=== PATIENT | female | born 1945 | race Caucasian/White ===

== ENCOUNTER → 2016-12-08 | Outpatient (CLI) | payer MEDICARE ==
[2016-04-27 12:30] VITALS: BP 182/86
[~2016-12-08] MED LIST: ASPI81TA44 PO; CALC-61 PO; CHOL2000 PO; FISH1CAP PO; GLIM4TAB2 PO; LISI40TA PO; METO50TA2 PO; SIMV40TA3 PO; TRAM50TA PO
--- NOTE | 2016-12-08 12:59 | KCIC ---
PROCEDURE Two-view right hand HISTORY Pain and swelling of the right 2nd finger for 6 months. COMPARISON None FINDINGS Generalized bone demineralization. No evidence of acute fracture or aggressive bone destruction. No evidence of dislocation Mild generalized degenerative osteoarthritis. Small chronic ossicle adjacent to the distal aspect of the proximal 1st phalanx. IMPRESSION No acute fracture or dislocation. Electronically signed by: Barry Galindo MD (Dec 08, 2016 12:57:28)
== END | disposition home or self-care (01) ==
LOC: KCIC 11:58
PROVIDERS: ATTEND Nurse Practitioner Family
DX: M79.641 Pain in right hand (principal); M79.89 Other specified soft tissue disorders
CPT/HCPCS: 73120

== ENCOUNTER → 2017-04-27 | Outpatient (CLI) | payer MEDICARE ==
[2016-04-27 12:30] VITALS: BP 182/86
[~2017-04-27] MED LIST changes: +CALC-474 PO; -CALC-61 PO
--- NOTE | 2017-04-27 16:28 | KCIC ---
EXAM: Chest, 2 views. HISTORY: Cough, fever and chills. COMPARISON: None. FINDINGS: Frontal and lateral views of the chest are obtained. There is suspected right basilar atelectasis or scarring. There is no infiltrate, effusion or pneumothorax. The heart is normal in size. There are bilateral shoulder arthroplasties. IMPRESSION: 1. No acute pulmonary finding. 2. Suspected right basilar atelectasis or scarring. Electronically signed by: Karin Frank MD (04/27/2017 4:25 PM) [facility]
== END | disposition home or self-care (01) ==
LOC: KCIC 15:50
PROVIDERS: ATTEND Nurse Practitioner Family
DX: R05 Cough (principal); R50.9 Fever, unspecified
CPT/HCPCS: 71020

== ENCOUNTER → 2017-11-14 | Outpatient (CLI) | payer MEDICARE | END | disposition home or self-care (01) | LOC: KCIC 15:00 | DX: J18.9 Pneumonia, unspecified organism (principal) | CPT/HCPCS: 71046 ==

== ENCOUNTER → 2017-11-15 | Outpatient (CLI) | payer MEDICARE | END | disposition home or self-care (01) | LOC: KCIC CT 15:04 | DX: I25.10 Atherosclerotic heart disease of native coronary artery without angina pectoris (principal); I35.0 Nonrheumatic aortic (valve) stenosis; K43.9 Ventral hernia without obstruction or gangrene; R91.8 Other nonspecific abnormal finding of lung field | CPT/HCPCS: 71250 ==

== ENCOUNTER → 2017-12-11 | Day surgery (SDC) | payer MEDICARE ==
[~2017-12-11] MED LIST changes: +0.9 % SODIUM CHLORIDE 10 ML DISP.SYRIN. IV; -ASPI81TA44 PO; -CALC-474 PO; -CHOL2000 PO; -FISH1CAP PO; -GLIM4TAB2 PO; +IV RINGERS,LACTATED 1000ML 1,000 ML IV; +LIDOCAINE 1% PF 2 ML VIAL. ID; -LISI40TA PO; -METO50TA2 PO; +MORPHINE SULFATE 4 MG/ML DISP.SYRIN. IV; +ONDANSETRON PF 4 MG/2 ML VIAL. IV; +PROCHLORPERAZINE 10 MG/2 ML VIAL. IV; +PROPOFOL 0 ML IV; -SIMV40TA3 PO; -TRAM50TA PO; +fentaNYL PF VIAL 100 MCG/2 ML VIAL IV
== END ==
LOC: SURG 08:20
DX: I25.10 Atherosclerotic heart disease of native coronary artery without angina pectoris (principal); Z53.8 Procedure and treatment not carried out for other reasons
CPT/HCPCS: 93005; J2704

== ENCOUNTER → 2018-01-30 | Outpatient (CLI) | payer MEDICARE ==
[2018-01-30] MEDS: IOHEXOL 240 MG/ML 50ML VIAL. PO (08:50)
[2018-01-30] MEDS: IOHEXOL 300 MG/ML 100ML VIAL. IV (09:20)
[2018-01-30 09:33] LABS: ISTAT CREATININE 1.3 mg/dL (0.6-1.1)
== END | disposition home or self-care (01) ==
LOC: KCIC CT 07:48
DX: C85.90 Non-Hodgkin lymphoma, unspecified, unspecified site (principal); K43.9 Ventral hernia without obstruction or gangrene; I70.0 Atherosclerosis of aorta; I25.10 Atherosclerotic heart disease of native coronary artery without angina pectoris
CPT/HCPCS: 71260; 74177; 82565; Q9966; Q9967

== ENCOUNTER → 2018-03-23 | Outpatient (CLI) | payer MEDICARE ==
[2018-03-23 10:23] LABS: ALBUMIN 3.7 g/dL (3.4-5.0); ALBUMIN/GLOBULIN RATIO 1.2 (1.0-1.7); ALK PHOS 114 U/L (46-116); ALT (SGPT) 22 U/L (14-59); ANION GAP 8 (6-14); AST (SGOT) 13 U/L (15-37); BLOOD UREA NITROGEN 26 mg/dL (7-20); BUN/CREATININE RATIO 19 (6-20); CARBON DIOXIDE 27 mmol/L (21-32); CHLORIDE 102 mmol/L (98-107); CREATININE 1.4 mg/dL (0.6-1.0); GFR 36.9; GLUCOSE 258 mg/dL (70-99); SODIUM 137 mmol/L (136-145); TOTAL BILIRUBIN 0.4 mg/dL (0.2-1.0); TOTAL PROTEIN 6.7 g/dL (6.4-8.2)
[2018-03-23 10:59] LABS: VITAMIN-B12 983 pg/mL (247-911)
== END | disposition home or self-care (01) ==
LOC: LAB 09:29
DX: R00.1 Bradycardia, unspecified (principal); I12.9 Hypertensive chronic kidney disease with stage 1 through stage 4 chronic kidney disease, or unspecified chronic kidney disease; N18.4 Chronic kidney disease, stage 4 (severe); E11.9 Type 2 diabetes mellitus without complications
CPT/HCPCS: 36415; 80053; 82607

== ENCOUNTER → 2018-07-30 | Outpatient (CLI) | payer MEDICARE ==
[2016-04-27 12:30] VITALS: BP 182/86
[~2018-07-30] MED LIST changes: -0.9 % SODIUM CHLORIDE 10 ML DISP.SYRIN. IV; +ALLO100T PO; +ASPI81TA59 PO; +CALC-474 PO; +CALC1CAP7 PO; +CHOL2000 PO; +DILT120C2 PO; +DOCU100C28 PO; +FISH1CAP PO; +FLUT1DIS3 IH; +GABA-585 PO; +GLIM4TAB2 PO; +IOHEXOL 240 MG/ML 50ML VIAL. PO ONE; +IOHEXOL 300 MG/ML 100ML VIAL. IV ONE; -IV RINGERS,LACTATED 1000ML 1,000 ML IV; -LIDOCAINE 1% PF 2 ML VIAL. ID; +LISI-130 PO; +LISI-334 PO; +METO50TA6 PO; -MORPHINE SULFATE 4 MG/ML DISP.SYRIN. IV; -ONDANSETRON PF 4 MG/2 ML VIAL. IV; +PROAIR RESPICL90 MCG IH; -PROCHLORPERAZINE 10 MG/2 ML VIAL. IV; -PROPOFOL 0 ML IV; +SIMV20TA3 PO; +SIMV40TA3 PO; +TRAM50TA PO; +VITAMIN B12 SL; -fentaNYL PF VIAL 100 MCG/2 ML VIAL IV
--- NOTE | 2018-07-30 13:09 | KCIC ---
Examination: CT CHEST ABD PELVIS W/CONTRAST History: Follicular lymphoma Comparison/Correlation: 01/30/2018 CT chest abdomen pelvis with contrast Findings: Axial images of the chest, abdomen, and pelvis were obtained following 70 cc Omnipaque 300 IV. Oral contrast was administered. Sagittal and coronal reformatted images were provided. Bilateral shoulder joint prostheses are present and is here evaluation at the level of the thoracic inlet due to streak artifact. Visualized soft tissues of the base of the neck are unremarkable although evaluation is limited. No enlarged lymph nodes involving the thorax identified. No suspicious pulmonary nodule. Coronary arterial calcification diffusely noted especially involving the left main, left anterior descending, and right circumflex arteries. Calcification about the mitral annulus is present. The tracheobronchial tree is unremarkable. No infiltrates or effusions. No pneumothorax. No pulmonary nodules or masses. Cholecystectomy noted. Liver, spleen, pancreas, and adrenal glands are normal. Right extrarenal pelvis is present. Kidneys are unremarkable overall. Moderate quantity of stool in the colon is present. No bowel obstruction. No extraluminal gas. Mesenteric lymph nodes are present and multiple other nonenlarged. No enlarged paracaval or para-aortic lymph nodes. Duodenal diverticulum incidentally seen at the distal descending region. Urinary bladder is normal. Uterus is atrophic. Minimal abdominal wall scarring which presumably represent previous intervention noted. Small hernia defect contains omental fat similar to prior exam. Moderate L3-4 and L4-5 disc space narrowing identified. Impression: No enlarged lymph nodes identified to involve the chest, abdomen, or pelvis. No significant change. Electronically signed by: Ethan Mattson MD (07/30/2018 1:06 PM) [facility]
== END | disposition home or self-care (01) ==
LOC: KCIC CT 08:14
PROVIDERS: ATTEND Internal Medicine Hematology & Oncology
DX: K57.10 Diverticulosis of small intestine without perforation or abscess without bleeding (principal); I25.10 Atherosclerotic heart disease of native coronary artery without angina pectoris; M48.061 Spinal stenosis, lumbar region without neurogenic claudication; N85.8 Other specified noninflammatory disorders of uterus; I12.9 Hypertensive chronic kidney disease with stage 1 through stage 4 chronic kidney disease, or unspecified chronic kidney disease; E11.22 Type 2 diabetes mellitus with diabetic chronic kidney disease; N18.4 Chronic kidney disease, stage 4 (severe); Z90.49 Acquired absence of other specified parts of digestive tract; Z79.01 Long term (current) use of anticoagulants; Z85.72 Personal history of non-Hodgkin lymphomas
CPT/HCPCS: 71260; 74177; Q9966; Q9967

== ENCOUNTER 2019-06-20 08:07 | Inpatient (IN) | payer MEDICARE ==
[2019-06-20] VITALS (18 sets, daily range): BP systolic 95–137; BP diastolic 52–73
[~2019-06-20] VITALS: Ht 167.6 cm; Wt 80.4 kg
[~2019-06-20 08:07] MED LIST changes: -GLIM4TAB2 PO; +GLIM4TAB4 PO; -IOHEXOL 240 MG/ML 50ML VIAL. PO ONE; -IOHEXOL 300 MG/ML 100ML VIAL. IV ONE; +SIMV20TA18 PO; -SIMV20TA3 PO; +SIMV40TA18 PO; -SIMV40TA3 PO
--- NOTE | 2019-06-20 08:41 | EKG ---
[facility] [address] [place] [address] Test Date: 2019-06-20 Test Time: 08:35:43 Pat Name: JOHNNA HAYDEN Department: Room: Gender: F Account Support Rep: : 1945 Requested By: MAXWELL ROBERSON Order Number: [id number] Reading MD: Joel Tellez Measurements Intervals Speer Rate: 56 P: AR: QRS: 31 QRSD: 76 T: 64 QT: 426 QTc: 414 Interpretive Statements SINUS ARRHYTHMIA PACS Electronically Signed On 06-28-2019 16:33:40 CDT by Joel Tellez
[2019-06-20] MEDS ORDERED: AMLO10TA8 PO (09:18)
[2019-06-20] MEDS ORDERED: B12 SL (09:18)
[2019-06-20] MEDS ORDERED: METO-269 PO (09:18)
[2019-06-20] MEDS ORDERED: [UNRECOGNIZED DRUG - OTHER] (09:18)
[2019-06-20] MEDS ORDERED: DOXY25TA16 PO (09:18)
[2019-06-20] MEDS ORDERED: DIPHENHYDRAMINE PO (09:18)
[2019-06-20] MEDS ORDERED: VALE450C2 PO (09:18)
[2019-06-20] MEDS ORDERED: HYDR-2869 PO (09:18)
[2019-06-20] MEDS ORDERED: HYDR-2761 PO (09:18)
[2019-06-20] MEDS ORDERED: CEYLON CINNAMON PO (09:18)
[2019-06-20 09:20] LABS: HEMATOCRIT 38.9 % (36.0-47.0); HEMOGLOBIN 13.2 g/dL (12.0-15.5); RED BLOOD COUNT 4.24 x10^6/uL (3.50-5.40); RED CELL DISTRIBUTION WIDTH 13.6 % (11.5-14.5); WHITE BLOOD COUNT 3.9 x10^3/uL (4.0-11.0)
[2019-06-20 09:30] LABS: PROTHROMBIN TIME PATIENT 14.1 SEC (11.7-14.0)
[2019-06-20 09:41] LABS: CALCIUM 9.6 mg/dL (8.5-10.1); CREATININE 1.3 mg/dL (0.6-1.0)
[2019-06-20] MEDS ORDERED: BACITRACIN 50,000 UNIT in IV NORMAL SALINE 250ML 250 ML IRR ONE (10:00)
[2019-06-20] MEDS ORDERED: MIDAZOLAM HCL/PF 2 MG/2 ML VIAL. ONE ×2 (10:06→10:36)
[2019-06-20] MEDS ORDERED: fentaNYL PF VIAL 100 MCG/2 ML VIAL ONE ×2 (10:06→10:56)
[2019-06-20] MEDS ORDERED: IOHEXOL 300 MG/ML 100ML VIAL. ONE (10:18)
[2019-06-20] MEDS ORDERED: LIDOCAINE 2%/EPI 1:100,000 20 ML VIAL. ONE (10:23)
--- NOTE | 2019-06-20 10:29 | PDOC ---
Provider Note Provider Note Cardiology history and physical Reason for observation admission: Pacemaker placement History of present illness pleasant 73-year-old woman with past medical history as noted below has had recurrent episodes of lightheadedness and syncope and most recently was seen in the ER a week or 2 ago with similar symptoms. She has a long-standing history of bradycardia and intermittent tachycardia-bradycardia syndrome in the setting of atrial fibrillation. After discussion the risks and benefits in the office she has been brought in for elective pacemaker placement Past medical history #1 paroxysmal atrial fibrillation 2. Chronic tachycardia-bradycardia syndrome 3. Chronic kidney disease 4. Prior history of non-Hodgkin's lymphoma in 2007 Social history: She is . Denies any alcohol, tobacco or illicit drug use. Allergies to verapamil, Levaquin and tape. Family history is noncontributory Review systems is negative unless otherwise mentioned above in history of present illness. Current cardiac medications: Aspirin 81 mg daily lisinopril point milligrams twice a day and metoprolol XL 50 mg daily Hydralazine 50 mg twice a day, simvastatin 20 mg daily, amlodipine 10 mg daily Physical examination: The patient appeared well nourished and normally developed. Head exam is unremarkable. No scleral icterus or corneal arcus noted. Neck is without jugular venous distension, thyromegaly, or carotid bruits. Carotid upstrokes are brisk bilaterally. Lungs are clear to auscultation and percussion. Cardiac exam reveals the PMI to be normally sized and situated. Rhythm is regular. First and second heart sounds normal. No murmurs, rubs or gallops. Abdominal exam reveals normal bowel sounds, no masses, no organomegaly and no aortic enlargement. Extremities are nonedematous and both femoral and pedal pulses are normal. Msk: No traumua Neuro: No focal deficits Laboratory studies are grossly unremarkable. Impression: 1. Tachycardia bradycardia syndrome Plan: 1. Dual-chamber pacemaker placement. Risks and benefits discussed with the patient. MAXWELL ROBERSON MD Jun 20, 2019 10:29
--- NOTE | 2019-06-20 10:30 | PDOC ---
MODERATE SEDATION ASSESSMENT RISKS/ALTERNATIVES Risks/Alternatives Risks and alternatives of this type of sedation and procedure discussed with: RISK/ALTERNATIVES: Patient H & P ON CHART H & P H & P on chart and reviewed for co-morbid conditions and appropriate labs. H&P ON CHART: Yes STATUS PREG STATUS ASSESSED: N/A MEDS/ALLERGIES REVIEWED Meds/Allergies Reviewed Medications and Allergies including time and route of recently administered narcotics and sedatives. MEDS/ALLERGIES REVIEWED: Yes ASA RATING ASA RATING: II AIRWAY ASSESSMENT Airway Assessment Airway patency, oral function limitations, presence of caps, crowns, dentures, partials, and ability to extend neck assessed. AIRWAY ASSESSMENT: Yes MALLAMPATI SCORE MALLAMPATI SCORE: II PRE-SEDATION ASSESSMENT PRE-SEDATION ASSESSMENT: Yes MAXWELL ROBERSON MD Jun 20, 2019 10:30
[2019-06-20] MEDS ORDERED: LIDOCAINE 2%/EPI 1:100,000 20 ML VIAL. IJ ONE (11:00)
[2019-06-20] MEDS ORDERED: MIDAZOLAM HCL/PF 2 MG/2 ML VIAL. IV ONE (11:00)
[2019-06-20] MEDS ORDERED: fentaNYL PF VIAL 100 MCG/2 ML VIAL IV ONE (11:00)
[2019-06-20] MEDS ORDERED: IOHEXOL 300 MG/ML 50 ML VIAL. IART ONE (11:45)
[2019-06-20] MEDS ORDERED: CONTRAST GIVEN. MC PRN (12:00)
--- NOTE | 2019-06-20 12:38 | CARD ---
MR#: [id number] Date of Study: 06/20/2019 Ordering Physician: MAXWELL ROBERSON, Referring Physician: MAXWELL ROBERSON, Tech: APPROVED REPORT HISTORY The Patient is a 73 year-old female with a history of tachy-indio syndrome Fluoro time: 9.2min Dose: 71Yhqw0 Contrast:40cc Mioderate sedation:90 min PROCEDURES Insertion Dual Chamber Pacemaker INDICATIONS Tachybrady syndrome with syncope. IMPLANTED DEVICES 30 mL of 2% lidocaine was infiltrated into the skin and subcutaneous tissues for local anesthesia. A n incision was made over the left infraclavicular fossa and using blunt dissection and cautery a pock et was created. Venous access was obtained in the left subclavian vein and 6F sheaths were inserted. Subsequently, a Biotronik bipolar active fixation right ventricular lead model Solia S 60 cm with SN [id number] was advanced under fluoroscopic guidance and the tip was positioned in the right ventricular apex. 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 The short sheath was removed and this was replaced with th e tip placed in the mid SVC. It is suspected that the right atrial lead may have either gone into a c ollateral or may have been sub intimal in the vein. Following this, a Biotronik bipolar active fixat ion right atrial lead model Solia S 53, SN [id number] was placed in the right atrial appendage under fl uoroscopy guidance. The leads were secured into place and were attached to a Biotronik dual-chamber permanent pacemaker generator model Eluna 8 DR-T Pro MRI with serial number [id number]. This was place d in the pocket that was subsequently closed in 3 layers. Hemostasis was secured. Two limited bedside echocardiograms were performed to evalaute for any evidence of pericardial effusi on and this was unremarkable. The patient had maintained normal saturation and BP/HR through out the procedure. Final venogram revealed no significant contrast staining in the innominate and SVC. At the end of procedure, the right ventricular lead showed sensing amplitude of 8.8 mV, impedance of 819 ohms and a threshold of 0.6 volts. The right atrial lead showed a sensing amplitude of 1.5 mill ivolts, impedance of 429 ohms and a threshold of 1.0 volts. Patient tolerated the procedure well. The patient was transpored to the ICU for close monitoring. Complications discussed with the patient's f amily. Final parameters: DDD/CLS CONCLUSION 1. Succesful insertion of a Biotronik dual chamber pacemaker for tachy-indio syndrome. 2. 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 3. Monitor in ICU for any bleeding complications. Signed by : Maxwell Roberson, Electronically Approved : 06/20/2019 12:37:40
[2019-06-20] MEDS ORDERED: fentaNYL PF VIAL 100 MCG/2 ML VIAL IVP ONE ×2 (15:00→16:15)
[2019-06-20] MEDS ORDERED: DEXTROSE 50% 25 GM / 50ML DISP.SYRIN. IV PRN (15:00)
[2019-06-20] MEDS ORDERED: ALBUTEROL SULFATE 2.5 MG/3 ML NEBU. NEB PRN ×2 (15:00→15:15)
[2019-06-20 15:09] LABS: HEMATOCRIT 35.7 % (36.0-47.0); HEMOGLOBIN 12.2 g/dL (12.0-15.5); RED BLOOD COUNT 3.86 x10^6/uL (3.50-5.40); RED CELL DISTRIBUTION WIDTH 13.6 % (11.5-14.5); WHITE BLOOD COUNT 5.2 x10^3/uL (4.0-11.0)
[2019-06-20] MEDS ORDERED: IOHEXOL 300 MG/ML 100ML VIAL. IV ONE (15:30)
[2019-06-20] MEDS: METOPROLOL SUCC 24HR ER 50 MG TAB.ER.24H. PO SCH (15:30)
--- NOTE | 2019-06-20 16:04 | RAD ---
STUDY: CT chest with and without contrast INDICATION: Status post pacemaker placement with concern for venous perforation. COMPARISON: CT chest 07/30/2018 TECHNIQUE: Helical CT imaging of the chest performed both prior to and after the intravenous administration of 99 cc Omnipaque 300. The postcontrast images were timed for preferential evaluation of the major venous structures supplying the heart. Coronal and sagittal reformats were obtained. One or more of the following individualized dose reduction techniques were utilized for this examination: 1. Automated exposure control 2. Adjustment of the mA and/or kV according to patient size 3. Use of iterative reconstruction technique. FINDINGS: Sequela of recently placed left chest wall dual-lead pacer device. Hematoma surrounding the device hub in the left infraclavicular region with surrounding subcutaneous air. Note is made that close evaluation of the pacer leads as they course towards the left brachiocephalic vein, as well as the surrounding soft tissues, is made difficult by extensive streak artifact from bilateral total shoulder arthroplasty constructs. The pacer leads course along the left brachiocephalic vein to the superior vena cava. One lead terminates at the upper aspect of the right atrial appendage. The second lead terminates at the apex of the right ventricle. Fat stranding at the anterior mediastinum along the left brachiocephalic vein as it approaches the superior vena cava, image 21 series 7, as well as fat stranding extending along the superior vena cava and upper aspect of the right atrial appendage. Slightly more dense stranding anterior to the superior vena cava such as on images 27 and 28, series 2, which does not change after the administration of contrast. No large pericardial effusion. No pneumomediastinum. Moderate volume right pleural effusion which contains wispy increased density that is present on the precontrast images corresponding to contrast administered during pacer placement. No increase in volume of contrast within this effusion on the postcontrast images to suggest active hemorrhage. Expected opacification of the azygos vein, image 24 series 7. Extensive coronary artery calcifications. The study is not timed for close evaluation of the pulmonary arteries though note is made that no large central pulmonary embolism is seen. Thoracic aortic calcifications without aneurysmal dilatation. Calcified and noncalcified atheromatous plaque also seen to involve the visualized abdominal aorta and branch vessel origins. Passive atelectasis overlying the right pleural effusion. Left-sided dependent volume loss also noted. No pneumothorax. Contrast in the renal collecting systems relating to procedural contrast administration. Multifocal osseous degenerative changes on a background of osteopenia. No acute or destructive osseous abnormality identified. IMPRESSION: 1. Soft tissue findings in the left infraclavicular region in keeping with recently placed dual-lead pacer device with surrounding hemorrhage and subcutaneous air. This is likely within the broad range of normal given proximity to the procedure. Note is made that the soft tissues, osseous structures and hardware components at the level of the clavicles are not well evaluated due to extensive streak artifact from surgical hardware. 2. Stranding along the left brachiocephalic vein as it approaches the superior vena cava, as well as along the superior vena cava and upper aspect of the right atrial appendage, is in keeping with known mild venous injury during pacer placement. Correspondingly, there is contrast within a moderate-sized right pleural effusion that is present on the precontrast sequences compatible with extravasation during the procedure. There is no increase in the volume of contrast within this effusion on the postcontrast sequences to suggest ongoing bleeding. Note is made that the most dense perivenous stranding on the precontrast sequences is seen anterior to the upper aspect of the superior vena cava, image 27/28 series 2, which could potentially have represented the site of injury. No large pericardial effusion or hematoma to suggest active hemorrhage within the mediastinum. No pneumothorax. 3. Incidental chronic findings, as above, to include extensive coronary artery calcifications. The results of the study were discussed with Dr. Snow on 06/20/2019 at 1545 hours. Electronically signed by: STEVIE HENDERSON MD (06/20/2019 4:01 PM) [facility]
[2019-06-20] MEDS: HYDROcodone/APAP 5/325MG 1 TAB TABLET PO PRN (16:42)
[2019-06-20] MEDS: INSULIN LISPRO 300 UNITS/3 ML VIAL. SQ SCH (17:35)
--- NOTE | 2019-06-20 18:07 | PDOC ---
Provider Note Provider Note Brief cardiology history and physical Reason for admission: Post procedure after pacemaker placement History of present illness: 73-year-old woman with past medical history of tachybradycardia syndrome and who has previously been treated conservatively has had multiple episodes of lightheadedness and dizziness with a heart rate of 27 when she went to a another provider. Therefore after discussion of the risks and benefits an outpatient basis the patient was brought in for elective pacemaker placement. 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 She had some contrast extravasation into the thorax. Ultimately, a dual-chamber Biotronik pacemaker was placed without any difficulty. The patient remained hemodynamically stable without any respiratory issues throughout the operative procedure. Due to concern for possible hemodynamic compromise a decision was made to place the patient in the ICU for overnight observation After addition to the ICU she was noted to have some chest discomfort and echocardiogram while in the operative suite did not reveal any pericardial effusion and to rule out any significant venous hemorrhage a CT angiogram was obtained. The CT angiogram was reassuring and did not reveal any significant bleeding stigmata. The leads were appropriately positioned. The patient did have a small to moderate size left infraclavicular incisional hematoma which was treated with compression therapy. At the time of this dictation the patient's hemodynamic status is excellent. She denies any pain out of the ordinary. Her cardiovascular examination is unremarkable. No arrhythmias on telemetry. Laboratory studies are unremarkable from this morning. Plan: 1. Overnight observation with routine post procedural antibiotics and if no acute events overnight and her device is within normal limits with respect to her evaluation and lead placement we will plan for discharge tomorrow around noon. The expected complications and current clinical stable status was discussed extensively with the patient and her family (). All their questions were answered to their satisfaction. MAXWELL ROBERSON MD Jun 20, 2019 18:06
[2019-06-20] MEDS ORDERED: IV NORMAL SALINE 1000ML BAG 1,000 ML IV SCH (18:15)
--- NOTE | 2019-06-20 19:00 | NUR ---
Reassessments for Fentanyl not completed by ED RN. Documented as "not done" by this RN.
[2019-06-20] MEDS ORDERED: IV NORMAL SALINE 1000ML BAG 1,000 ML IV ONE (19:15)
--- NOTE | 2019-06-20 19:24 | NUR ---
Dr. Snow rounded on patient this evening around 1900. Stated to place a X1 order for NS at 100 ml/hr and to monitor pacemaker site throughout the night for additional swelling/changes.
[2019-06-20] MEDS: GLIMEPIRIDE 2 MG TABLET. PO SCH (20:47)
[2019-06-20] MEDS: fentaNYL PF VIAL 100 MCG/2 ML VIAL IVP PRN (22:07)
[2019-06-21] VITALS (24 sets, daily range): BP systolic 115–159; BP diastolic 53–74
[2019-06-21] MEDS: HYDROcodone/APAP 5/325MG 1 TAB TABLET PO PRN ×3 (03:12→17:44)
[2019-06-21] MEDS: fentaNYL PF VIAL 100 MCG/2 ML VIAL IVP PRN ×2 (04:14→07:43)
[2019-06-21 05:56] LABS: BASO % 0 % (0-3); EOS % 0 % (0-3); HEMATOCRIT 30.7 % (36.0-47.0); HEMOGLOBIN 10.5 g/dL (12.0-15.5); LYMPH # 0.9 x10^3/uL (1.0-4.8); LYMPH % 19 % (24-48); MEAN CORPUSCULAR HEMOGLOBIN 32 pg (25-35); MEAN CORPUSCULAR HGB CONC 34 g/dL (31-37); MEAN CORPUSCULAR VOLUME 92 fL (79-100); MONO # 0.5 x10^3/uL (0.0-1.1); MONO % 11 % (0-9); NEUT # 3.4 x10^3/uL (1.8-7.7); NEUT % 69 % (31-73); PLATELET COUNT 105 x10^3/uL (140-400); RED BLOOD COUNT 3.35 x10^6/uL (3.50-5.40); RED CELL DISTRIBUTION WIDTH 13.6 % (11.5-14.5); WHITE BLOOD COUNT 4.9 x10^3/uL (4.0-11.0)
[2019-06-21 06:08] LABS: CALCIUM 8.4 mg/dL (8.5-10.1); CREATININE 1.1 mg/dL (0.6-1.0); GFR 48.6
[2019-06-21] MEDS: METOPROLOL SUCC 24HR ER 50 MG TAB.ER.24H. PO SCH (09:09)
[2019-06-21] MEDS: GLIMEPIRIDE 2 MG TABLET. PO SCH ×2 (09:09→21:06)
[2019-06-21] MEDS: INSULIN LISPRO 300 UNITS/3 ML VIAL. SQ SCH ×3 (09:12→17:31)
--- NOTE | 2019-06-21 10:19 | CARD ---
MR#: [id number] Date of Study: 06/21/2019 Ordering Physician: LARRY RAMIREZ, Referring Physician: LARRY RAMIREZ, Tech: Whitney Guillermo APPROVED REPORT EXAM: Two-dimensional and M-mode echocardiogram with Doppler and color Doppler. Other Information Quality : AverageHR: 65bpm Rhythm : Pacemaker INDICATION Pericardial Effusion Atrial Fibrillation Syncope Surgery/Intervention Pacemaker: Date: 2018 LEFT VENTRICLE Limited study. The left ventricle is normal size. There is normal left ventricular wall thickness. Th e left ventricular systolic function is normal and the ejection fraction is within normal range. The Ejection Fraction is 55-60%. There is normal LV segmental wall motion. Diastology not performed. RIGHT VENTRICLE The right ventricle is normal size. There is normal right ventricular wall thickness. The right ventr icular systolic function is normal. Device lead in the right ventricle. ATRIA The left atrium size is normal. The right atrium size is normal. The interatrial septum is intact wit h no evidence for an atrial septal defect or patent foramen ovale as noted on 2-D or Doppler imaging. AORTIC VALVE The aortic valve is thickened but opens well. Doppler and color-flow analysis was not performed. Ther e is no significant aortic valvular stenosis. MITRAL VALVE Mitral annular calcification is mild to moderate. There is no evidence of mitral valve prolapse. Ther e is no mitral valve stenosis. Doppler and color-flow analysis was not performed. TRICUSPID VALVE The tricuspid valve is normal in structure and function. Doppler and color-flow analysis was not perf ormed. There is no tricuspid valve stenosis. PULMONIC VALVE The pulmonic valve is not well visualized. Doppler and color-flow analysis was not performed. GREAT VESSELS The aortic root is normal in size. The IVC is normal in size and collapses >50% with inspiration. PERICARDIAL EFFUSION There is a trace pericardial effusion with no hemodynamic significance. Critical Notification Critical Value: No <Conclusion> Limited study. The left ventricle is normal size. The left ventricular systolic function is normal and the ejection fraction is within normal range. The Ejection Fraction is 55-60%. There is normal LV segmental wall motion. There is a trace pericardial effusion with no hemodynamic significance. Signed by : Joel Tellez MD Electronically Approved : 06/21/2019 10:19:06
--- NOTE | 2019-06-21 12:13 | PDOC ---
Provider Note Provider Note Overnight, no acute events. Had some pain in the right chest area that resolved with pain control. VSS CXR this morning with lead movement and lack of appropriate capture. Will plan for RV/RA lead revision today. Etiology of lead movement unclear. She had excellent slack on the lead yesterday with great parameters. D/w Family. MAXWELL ROBERSON MD Jun 21, 2019 12:13
[2019-06-21] MEDS ORDERED: LIDOCAINE 2%/EPI 1:100,000 20 ML VIAL. ONE ×2 (12:22)
[2019-06-21] MEDS ORDERED: MIDAZOLAM HCL/PF 5 MG/5 ML VIAL. ONE (12:23)
[2019-06-21] MEDS ORDERED: fentaNYL PF VIAL 100 MCG/2 ML VIAL ONE ×2 (12:23→13:13)
[2019-06-21] MEDS ORDERED: BACITRACIN 50,000 UNIT in IV NORMAL SALINE 250ML 250 ML IRR ONE (12:30)
[2019-06-21] MEDS ORDERED: LIDOCAINE 2%/EPI 1:100,000 20 ML VIAL. IJ ONE (12:30)
[2019-06-21] MEDS ORDERED: MIDAZOLAM HCL/PF 5 MG/5 ML VIAL. IV ONE (12:30)
[2019-06-21] MEDS ORDERED: fentaNYL PF VIAL 100 MCG/2 ML VIAL IV ONE (12:30)
--- NOTE | 2019-06-21 13:05 | RAD ---
Chest AP portable at 0645: Reason for examination: Post pacemaker placement. Comparison is made to previous study dated 11/14/2017. Pacemaker is present over the left hemithorax with leads to the right atrium and right ventricle. Heart and mediastinum are unchanged. Lung soliman show some blunting at the right costophrenic angle suggesting a small pleural effusion. No congestion or focal infiltrates are seen. No pneumothorax is seen. No acute bony abnormalities are present. Postop changes are seen at both shoulders. IMPRESSION: Pacemaker in place over the left hemithorax. No pneumothorax evident. Blunted costophrenic angle on the right suggesting a small right pleural effusion. Electronically signed by: Brittney Arriaga MD (06/21/2019 1:02 PM) [id number]
--- NOTE | 2019-06-21 14:34 | CARD ---
MR#: [id number] Date of Study: 06/21/2019 Ordering Physician: MAXWELL ROBERSON, Referring Physician: MAXWELL ROBERSON, Tech: APPROVED REPORT HISTORY The Patient is a 73 year-old female with a history of SSS PROCEDURES RV LEAD REPOSITIONING FLUORO TIME: 4.9 MINUTES Dose: 6.7 Gycm2 Sedation Time: 103 minutes Pacemaker lead revision and pocket hematoma INDICATIONS 73 y.o woman with dual chamber pacemaker yesterday that had an iatrogenic innominate vein injury and was monitored in the ICU. Her lead evaluation this morning revealed lead dislodgement and significant loss of slack with a pocket hematoma. She was brought back to the lab for a revision. The left infraclavicular site was prepped and draped in usual sterile fashion. The previous incision was then opened with a scalpel and significant amount of clot burden was removed. The pocket was irri gated multiple times and there was residual evidence of diffuse oozing. 2 sites of more prominent ble eding were cauterized. The right ventricular lead was repositioned and excellent thresholds and sensi tivities were obtained. The right atrial lead also revealed normal thresholds and sensitivities. The pocket was fully inspected for several minutes and there was no obvious evidence of bleeding. After c onfirmation again of excellent pacing thresholds and sensitivities A decision was made to terminate t he procedure. The device battery was then placed in the pocket and the incision was closed in 3 layer s without any acute complications. Please refer to prior report for details regarding serial numbers of the leads. Prior to leaving the operative suite the right atrial sensitivities were approximately 2 mV and the right ventricular sensitivities were approximately 10 mV. Thresholds were less than 1 in both the right atrium and right ventricle. Impedances were also within normal limits. We had the pat ient perform multiple maneuvers including coughing and deep breaths and this did not alter the moveme nt of the lead nor the parameters as noted. CONCLUSION 1. Successful lead revision and evacuation of pocket hematoma. Signed by : Maxwell Roberson, Electronically Approved : 06/21/2019 14:33:51
--- NOTE | 2019-06-21 16:00 | RAD ---
EXAM: CHEST 1 VIEW History: Post lead revision. COMPARISON: Same day exam TECHNIQUE: Single portable radiograph of the chest FINDINGS: Left-sided pacer is identified. Mild bibasilar lung airspace opacities likely atelectasis or infiltrate is mild prominent appearing bilateral interstitial lung markings similar to prior exam. IMPRESSION: 1. Mild bibasilar lung airspace opacities likely atelectasis or infiltrates. Electronically signed by: Dimitri Arambula MD (06/21/2019 3:57 PM) [facility]
--- NOTE | 2019-06-21 16:26 | NUR ---
SS following for discharge planning. SS reviewed pt chart. Pt is from home with spouse and is currently requiring oxygen. SS will continue to follow for discharge planning.
[2019-06-22] VITALS (13 sets, daily range): BP systolic 114–149; BP diastolic 56–81
[2019-06-22] MEDS: HYDROcodone/APAP 5/325MG 1 TAB TABLET PO PRN ×2 (01:30→07:22)
[2019-06-22 06:52] LABS: BASO % 1 % (0-3); EOS % 0 % (0-3); HEMATOCRIT 32.9 % (36.0-47.0); LYMPH # 1.1 x10^3/uL (1.0-4.8); LYMPH % 27 % (24-48); MEAN CORPUSCULAR HEMOGLOBIN 31 pg (25-35); MEAN CORPUSCULAR HGB CONC 34 g/dL (31-37); MEAN CORPUSCULAR VOLUME 92 fL (79-100); MONO # 0.5 x10^3/uL (0.0-1.1); MONO % 12 % (0-9); NEUT # 2.5 x10^3/uL (1.8-7.7); NEUT % 60 % (31-73); PLATELET COUNT 109 x10^3/uL (140-400); RED BLOOD COUNT 3.56 x10^6/uL (3.50-5.40); RED CELL DISTRIBUTION WIDTH 13.4 % (11.5-14.5); WHITE BLOOD COUNT 4.1 x10^3/uL (4.0-11.0)
[2019-06-22 07:00] LABS: GFR 54.2
[2019-06-22] MEDS: INSULIN LISPRO 300 UNITS/3 ML VIAL. SQ SCH ×2 (08:25→12:18)
[2019-06-22] MEDS: GLIMEPIRIDE 2 MG TABLET. PO SCH (09:04)
[2019-06-22] MEDS: METOPROLOL SUCC 24HR ER 50 MG TAB.ER.24H. PO SCH (09:04)
--- NOTE | 2019-06-22 09:47 | RAD ---
CHEST PA LATERAL History: Post pacemaker placement Comparison: June 21, 2019 Findings: Unchanged left-sided pacemaker. No pneumothorax. Small right and tiny left pleural effusion. Patchy bibasilar opacities, unchanged. Bilateral shoulder arthroplasties. Unchanged heart size. Impression: 1. Low lung volumes with patchy bibasilar opacities, unchanged. 2. Small right and tiny left pleural effusions, unchanged. Electronically signed by: Jeffrey Ruano DO (06/22/2019 9:44 AM) [facility]
--- NOTE | 2019-06-24 13:44 | PDOC3 ---
Discharge Summary Visit Information Date of Admission: Jun 20, 2019 Date of Discharge: Jun 22, 2019 Admitting Diagnosis Comment: Tachybradycardia syndrome with atrial fibrillation. Final Diagnosis Tachybradycardia syndrome with atrial fibrillation Brief Hospital Course Allergies Allergies Coded Allergies Type Severity Reaction Last Updated Verified levofloxacin Allergy Intermediate Hives 04/27/16 Yes adhesive tape Allergy Unknown TEARS SKIN 12/08/17 Yes verapamil Allergy Unknown BAD HEADACHE 12/08/17 Yes Brief Hospital Course The patient is a 73-year-old female who was admitted for tachybradycardia syndrome and pacemaker placement. Patient had a dual-chamber permanent pacemaker placed on June 20 without complications. Monitoring overnight showed some decrease in capture and the patient required a revision of her leads on June 21. This was done without complications. The patient remains stable overnight. Interrogation the following day showed normal functioning of her device. Chest x-ray showed no acute findings. She was discharged on June 22, 2019. She will be continue on her present home medications. We will follow-up the patient in approximately one week for a wound check. She will be placed in pacemaker clinic. Assessment Assessment Tachybradycardia syndrome with atrial fibrillation successfully treated with a dual-chamber pacemaker. Discharge Information Condition at Discharge: Stable Follow Up: Weeks (wound check in one to 2 weeks.) Disposition/Orders: D/C to Home Scheduled Allopurinol (Allopurinol) 100 Mg Tablet, 1 TAB PO DAILY for URIC ACID DEVELOPMENT ADMINISTRATOR, #30 Ref 5 (Reported) Entered as Reported by: YOMI JOHNSON on 12/08/17 1532 Last Taken: Unknown Dose on 06/20/19 Last Action: Edited on 06/20/19917 by MUNA STUART Amlodipine Besylate (Amlodipine Besylate) 10 Mg Tablet, 10 MG PO DAILY for HTN, (Reported) Entered as Reported by: MUNA STUART on 06/20/19917 Last Taken: Unknown Dose on 06/20/19 Last Action: New Order on 06/20/19917 by MUNA STUART Aspirin (Children's Aspirin) 81 Mg Tab.chew, 81 MG PO DAILY, (Reported) Entered as Reported by: CHAVA MULLIGAN on 04/27/16 0830 Last Action: Reviewed on 06/20/19917 by MUNA STUART Calcium Carbonate/Vitamin D3 (Calcium 600 + Vit D 400 Softgl) 1 Each Capsule, 1 EACH PO DAILY, (Reported) Entered as Reported by: YOMI JOHNSON on 12/08/17 1623 Last Action: Reviewed on 06/20/19917 by MUNA STUART Diltiazem Hcl (Cardizem Cd) 120 Mg Cap.er.24h, 180 MG PO QEVNG for FOR HYPERTENSION, #30 Ref 0 (Reported) Entered as Reported by: YOMI JOHNSON on 12/08/17 1617 Doxylamine Succinate (Unisom Sleep Aid) 25 Mg Tablet, 50 MG PO DAILY for SLEEP, (Reported) Entered as Reported by: MUNA STUART on 06/20/19917 Last Action: New Order on 06/20/19917 by MUNA STUART Fish Oil/Dha/Epa (Fish Oil 1,200 Mg Fish Oil) 1 Each Capsule, 1 EACH PO BID, (Reported) Entered as Reported by: CHAVA MULLIGAN on 04/27/16829 Last Action: Reviewed on 06/20/19917 by MUNA STUART Gabapentin (Gabapentin ) 100 Mg Capsule, 100 MG PO BID for NEUROPATHY, (Reported) Entered as Reported by: YOMI JOHNSON on 12/08/171619 Last Action: Edited on 06/20/19917 by MUNA STUART Glimepiride (Glimepiride) 4 Mg Tablet, 4 MG PO BID, (Reported) Entered as Reported by: CHAVA MULLGIAN on 04/27/16829 Last Action: Converted on 06/20/19 145 by OSITO KEENAN Hydralazine Hcl (Hydralazine Hcl) 50 Mg Tablet, 1 TAB PO BID for HTN, #180 Ref 3 (Reported) Entered as Reported by: MUNA STUART on 06/20/19917 Last Taken: Unknown Dose on 06/20/19 Last Action: New Order on 06/20/19917 by MUNA STUART Lisinopril (Lisinopril) 20 Mg Tablet, 1 TAB PO BID, #30 Ref 5 (Reported) Entered as Reported by: YOMI JOHNSON on 12/08/17 1529 Last Action: Reviewed on 06/20/19917 by MUNA STUART Metoprolol Succinate (Toprol Xl) 50 Mg Tab.er.24h, 50 MG PO DAILY for FOR HYPERTENSION, #30 Ref 0 (Reported) Entered as Reported by: MUNA STUART on 06/20/19917 Last Action: Converted on 06/20/191457 by OSITO KEENAN Metoprolol Tartrate (Metoprolol Tartrate) 50 Mg Tablet, 50 MG PO BID for FOR HYPERTENSION, #60 Ref 0 (Reported) Entered as Reported by: CHAVA MULLIGAN on 04/27/16 0830 Simvastatin (Simvastatin) 20 Mg Tablet, 1 TAB PO QHS, #30 Ref 5 (Reported) Entered as Reported by: YOMI JOHNSON on 12/08/171529 Last Action: Reviewed on 06/20/19917 by MUNA STUART Valerian Root (Valerian) 450 Mg Capsule, 500 MG PO HS for SLEEP, (Reported) Entered as Reported by: MUNA STUART on 06/20/19917 Last Action: New Order on 06/20/19917 by MUNA STUART [B12] , 500 MG SL BID, (Reported) Entered as Reported by: MUNA STUART on 06/20/19917 Last Action: New Order on 06/20/19917 by MUNA STUART [Homer Cinnamon] , 1,200 MG PO DAILY, (Reported) Entered as Reported by: MUNA STUART on 06/20/19917 Last Action: New Order on 06/20/19917 by MUNA STUART [Dephen Hydramine] , 25 MG PO BID for SLEEP, (Reported) Entered as Reported by: MUNA STUART on 06/20/19917 Last Action: New Order on 06/20/19917 by MUNA STUART [Vitamin B12] , 1,000 MCG SL DAILY, (Reported) Entered as Reported by: YOMI JOHNSON on 12/08/171533 Scheduled PRN Albuterol Sulfate (Proair Respiclick) 90 Mcg Aer.pow.ba, 2 PUFF IH PRN PRN for SHORTNESS OF BREATH, (Reported) Entered as Reported by: YOMI JOHNSON on 12/08/171535 Last Action: Converted on 06/20/191457 by OSITO KEENAN Docusate Sodium (Docusate Sodium) 100 Mg Capsule, 2 CAP PO PRN QHS PRN for CONSTIPATION, #30 (Reported) Entered as Reported by: YOMI JOHNSON on 12/08/17 1531 Last Action: Reviewed on 06/20/19917 by MUNA STUART Fluticasone/Salmeterol (Advair 250-50 Diskus) 1 Each Disk.w.dev, 2 PUFF IH PRN PRN for SHORTNESS OF BREATH, #3 Ref 3 (Reported) Entered as Reported by: YOMI JOHNSON on 12/08/17 153 Hydrocodone Bit/Acetaminophen (Hydrocodone-Apap 5-325 ) 1 Tab Tablet, 1 TAB PO PRN Q6HRS PRN for PAIN, Ref 0 (Reported) Entered as Reported by: MUNA STUART on 06/20/19917 Last Action: Continued on 06/20/191457 by OSITO KEENAN Tramadol Hcl (Tramadol Hcl) 50 Mg Tablet, 50 MG PO Q6H PRN for PAIN, (Reported) Entered as Reported by: CHAVA MULLIGAN on 04/27/16 0830 Miscellaneous Medications [ceylon] , (Reported) Entered as Reported by: MUNA STUART on 06/20/19917 Last Action: New Order on 06/20/19917 by HALLIE GRACE MD Jun 24, 2019 13:44
== END 2019-06-22 13:45 | disposition home or self-care (01) | DRG 242 ==
LOC: CCL 08:07 → 2 SOUTH 08:30 → 1 WEST ICU 13:07
PROVIDERS: ADMIT Internal Medicine Cardiovascular Disease; ATTEND Internal Medicine Cardiovascular Disease
PROC: 0JH606Z Insertion of Pacemaker, Dual Chamber into Chest Subcutaneous Tissue and Fascia, Open Approach (ICD-10-PCS; principal; 2019-06-20)
PROC: 02H63JZ Insertion of Pacemaker Lead into Right Atrium, Percutaneous Approach (ICD-10-PCS; 2019-06-20)
PROC: 02HK3JZ Insertion of Pacemaker Lead into Right Ventricle, Percutaneous Approach (ICD-10-PCS; 2019-06-20)
PROC: 02WA3MZ Revision of Cardiac Lead in Heart, Percutaneous Approach (ICD-10-PCS; 2019-06-21)
DX: I49.5 Sick sinus syndrome (principal); N17.0 Acute kidney failure with tubular necrosis; I48.0 Paroxysmal atrial fibrillation; N18.9 Chronic kidney disease, unspecified; Z85.72 Personal history of non-Hodgkin lymphomas; Z79.82 Long term (current) use of aspirin; Z79.899 Other long term (current) drug therapy; Y92.89 Other specified places as the place of occurrence of the external cause
CPT/HCPCS: 33208; 33215; 36415; 71045; 71046; 71270; 75827; 80048; 82962; 85025; 85027; 85610; 86850; 86900; 86901; 93005; 93308; 99152; 99153; C1769; C1785; C1898; J0690; J0696; J1815; J2250; J3010; J3490; J7030; J7050; J7613; Q9967; G0378